=== PATIENT | male | born 1990 | race Caucasian/White ===

== ENCOUNTER 2017-01-13 00:35 | Emergency (ER) | payer SELFPAY ==
[~2017-01-13] VITALS: Ht 165.1 cm; Wt 77.1 kg
[2017-01-13 00:36] VITALS: BP 146/82
--- NOTE | 2017-01-13 01:58 | NUR ---
TO ER BED 8
--- NOTE | 2017-01-13 02:28 | NUR ---
26Y/M PATIENT PRESENTS TO ED WITH C/O SOB X 1 HRS . PT STATES EPISODE OF DIFFICULTY BREATHING FOR 1 HR, NO FEVER . DENIES N/V/D; SKIN IS PINK/WARM/DRY; AAOX4 WITH EVEN AND STEADY GAIT; LUNGS CLEAR BL; HR EVEN AND REGULAR; PT DENIES ANY FEVER, CP, SOB, OR COUGH AT THIS TIME; PATIENT STATES PAIN OF 0/10 AT THIS TIME; VSS; PATIENT POSITIONED FOR COMFORT; HOB ELEVATED; BEDRAILS UP X2; BED DOWN. ER MD MADE AWARE OF PT STATUS.
--- NOTE | 2017-01-13 02:45 | NUR ---
Patient being evaluated by DR. WADSWORTH at bedside.
[2017-01-13 03:18] VITALS: BP 119/73
--- NOTE | 2017-01-13 03:18 | NUR ---
Patient discharged with v/s stable. Written and verbal after care instructions given and explained. Patient alert, oriented and verbalized understanding of instructions. Ambulatory with steady gait. All questions addressed prior to discharge. ID band removed. Patient advised to follow up with PMD. Rx of ATARAX 25 MG given. Patient educated on indication of medication including possible reaction and side effects. Opportunity to ask questions provided and answered.
== END 2017-01-13 03:18 | disposition home or self-care (01) ==
LOC: MED 00:35
DX: F41.9 Anxiety disorder, unspecified (principal)
CPT/HCPCS: 93005; 99284

== ENCOUNTER 2019-06-22 20:10 | Emergency (ER) | payer SELFPAY ==
[~2019-06-22] VITALS: Ht 162.6 cm; Wt 72.1 kg
[2019-06-22 20:15] VITALS: BP 146/89
--- NOTE | 2019-06-22 20:26 | NUR ---
PT AMBULATED TO LOBBY WITH FATHER TO A/W FOR BED
--- NOTE | 2019-06-22 23:30 | NUR ---
CALLED FOR PT IN ER LOBBY AND OUTSIDE OF LOBBY, NO ANSWER. PT LWBS AT [phone]
--- NOTE | 2019-06-22 23:34 | NUR ---
CALLED FOR PT IN ER LOBBY AND OUTSIDE OF LOBBY FOR SECOND TIME, NO ANSWER. PT LWBS AT [phone]
--- NOTE | 2019-06-22 23:40 | NUR ---
CALLED FOR PT IN ER LOBBY AND OUTSIDE OF LOBBY FOR THIRD TIME, NO ANSWER. PT LWBS AT [phone]
== END 2019-06-22 23:30 | disposition left against medical advice (07) ==
LOC: MED 20:10
DX: R51 Headache (principal)

== ENCOUNTER 2022-08-02 15:01 | Emergency (ER) | payer MEDICAID ==
[~2022-08-02] VITALS: Ht 165.1 cm; Wt 65.5 kg
[2022-08-02 15:14] VITALS: BP 110/65
--- NOTE | 2022-08-02 15:20 | NUR ---
PT AMB TO BED 11.
--- NOTE | 2022-08-02 15:27 | NUR ---
31/M WALKED IN C/O SORE THROAT AND FACIAL SWELLING ONSET 1WK. PT REPORTS TOOTHACHE. PT ALSO REPORTS SUBJECTIVE FEVER. AAO4, AMBULATORY, VITALS STABLE, NO ACUTE DISTRESS.
[2022-08-02] MEDS ORDERED: NACL 0.9% 2,000 ML IV SCH (16:05)
[2022-08-02] MEDS ORDERED: AMPICILLIN/SULBACTAM 3 GM in NACL 0.9% 100 ML IV ONE (16:10)
[2022-08-02] MEDS ORDERED: AMPICILLIN/SULBACTAM 3 GM VIAL ONE (16:23)
[2022-08-02 16:39] LABS: BASOPHILS # (AUTO) 0.1 K/uL (0.00-0.22); BASOPHILS % (AUTO) 1.1 % (0.0-2.0); EOSINOPHILS # (AUTO) 0.1 K/uL (0-0.4); EOSINOPHILS % (AUTO) 2.5 % (0.0-4.0); HEMATOCRIT 38.7 % (36-52); HEMOGLOBIN 12.9 g/dL (12.0-18.0); LYMPHOCYTES # (AUTO) 1.4 K/uL (2.0-11.5); LYMPHOCYTES % (AUTO) 25.7 % (20.5-51.1); MEAN CORPUSCULAR HEMOGLOBIN 28 pg (27-31); MEAN CORPUSCULAR HGB CONC 34 g/dL (33-37); MEAN CORPUSCULAR VOLUME 84.3 fL (80-94); MONOCYTES # (AUTO) 0.7 K/uL (0.8-1.0); MONOCYTES % (AUTO) 13.5 % (1.7-9.3); NEUTROPHILS # (AUTO) 3.1 K/uL (1.8-7.7); NEUTROPHILS % (AUTO) 57.2 % (42.2-75.2); PLATELET COUNT (AUTO) 342 K/uL (140-450); RED BLOOD CELL COUNT(AUTO) 4.59 MIL/uL (4.20-6.10); RED CELL DISTRIBUTION WIDTH 12.9 % (11.6-13.7); WHITE BLOOD COUNT (AUTO) 5.3 K/uL (4.8-10.8)
[2022-08-02 17:07] LABS: ALBUMIN 3.3 g/dL (3.4-5.0); ANION GAP 12.9 (8-16); ASPARTATE AMINOTRANSFERASE 32 U/L (15-37); CARBON DIOXIDE 29.5 mmol/L (21-32); CHLORIDE 98 mmol/L (98-107); CREATININE 0.8 mg/dL (0.6-1.3); GFR ARICAN-AMERICAN 147 mL/min (>90); GLUCOSE 95 mg/dL (74-106); POTASSIUM 3.4 mmol/L (3.5-5.1); SODIUM SERUM 137 mmol/L (136-145); TOTAL BILIRUBIN 0.3 mg/dL (0.0-1.0); UREA NITROGEN, BLOOD 13 mg/dL (7-18)
[2022-08-02 17:20] VITALS: BP 116/62
[2022-08-02] MEDS ORDERED: AMOX1TAB8 PO (18:26)
== END 2022-08-02 18:40 | disposition home or self-care (01) ==
LOC: MED 15:01
DX: K11.20 Sialoadenitis, unspecified (principal); F15.90 Other stimulant use, unspecified, uncomplicated; Z79.899 Other long term (current) drug therapy
CPT/HCPCS: 36415; 70491; 71045; 80053; 83605; 84484; 85025; 87040; 93005; 96365; 99285; J0295; J7030; Q0092; Q9967